=== PATIENT | female | born 1985 | race Two or more races ===

== ENCOUNTER → 2024-04-03 | Outpatient (REF) | payer OTHER | LOC: M SFHCWAGY 12:13 | PROVIDERS: ATTEND Specialist | DX: Z34.83 Encounter for supervision of other normal pregnancy, third trimester (principal) ==

== ENCOUNTER 2024-04-12 18:30 | Outpatient (CLI) | payer OTHER ==
[~2024-04-12] VITALS: Ht 165.1 cm; Wt 98.5 kg
[2024-04-12] MEDS ORDERED: PRENTAB9 PO (18:50)
[2024-04-12] MEDS ORDERED: HOME MED LIST COMPLETE! XX SCH (18:50)
[2024-04-12] MEDS ORDERED: PEPC40TA12 PO (18:50)
[2024-04-12 18:51] VITALS: BP 116/66
[2024-04-12 20:06] VITALS: BP 128/89
[2024-05-01] MEDS ORDERED: ACET325C5 PO (08:14)
[2024-05-01] MEDS ORDERED: VENTAER INH (09:32)
== END 2024-04-12 20:25 | disposition home or self-care (01) ==
LOC: M LDO 18:30
PROVIDERS: ATTEND Obstetrics & Gynecology
DX: O47.03 False labor before 37 completed weeks of gestation, third trimester (principal); O09.813 Supervision of pregnancy resulting from assisted reproductive technology, third trimester; O09.523 Supervision of elderly multigravida, third trimester; Z3A.36 36 weeks gestation of pregnancy; Z88.0 Allergy status to penicillin
CPT/HCPCS: 59025; G0463

== ENCOUNTER 2024-05-05 05:33 | Emergency (ER) | payer OTHER ==
[~2024-05-05] VITALS: Ht 165.1 cm; Wt 96.0 kg
[~2024-05-05 05:33] MED LIST: ACET325C5 PO; PEPC40TA12 PO; PRENTAB9 PO; VENTAER INH
[2024-05-05 07:17] LABS: BASO % 0.1 % (0.0-1.0); EOS # 0.1 10^3/uL (0.0-0.5); EOS % 1.6 % (0.0-3.0); HEMATOCRIT 27.5 % (36.0-47.0); HEMOGLOBIN 8.6 g/dl (12.0-15.5); LYMPH # 1.7 10^3/uL (1.5-5.0); LYMPH % 19.3 % (24.0-44.0); MEAN CORPUSCULAR HEMOGLOBIN 25.1 pg (27.0-33.0); MEAN CORPUSCULAR HGB CONC 31.3 g/dl (32.0-36.5); MEAN CORPUSCULAR VOLUME 80.2 fl (80.0-96.0); MONO # 0.9 10^3/uL (0.0-0.8); MONO % 10.3 % (2.0-8.0); NEUTROPHILS % 68.2 % (36.0-66.0); PLATELET COUNT, AUTOMATED 232 10^3/uL (150-450); RED BLOOD COUNT 3.43 10^6/uL (4.00-5.40); WHITE BLOOD COUNT 8.7 10^3/uL (4.0-10.0)
[2024-05-05 07:28] LABS: APPEARANCE, URINE CLEAR (CLEAR); BACTERIA, URINE AUTO NEGATIVE (NEGATIVE); BILIRUBIN, URINE AUTO NEGATIVE (NEGATIVE); BLOOD, URINE BLOOD 3+ (NEGATIVE); COLOR, URINE STRAW (YELLOW); GLUCOSE, URINE (UA) AUTO NEGATIVE (NEGATIVE); INR 0.97; KETONE, URINE AUTO NEGATIVE (NEGATIVE); LEUKOCYTE ESTERASE, URINE AUTO 2+ (NEGATIVE); NITRITE, URINE AUTO NEGATIVE (NEGATIVE); PARTIAL THROMBOPLASTIN TIME 26.4 SECONDS (24.8-34.2); PROTEIN, URINE AUTO NEGATIVE (NEGATIVE); PROTHROMBIN TIME 12.6 SECONDS (12.5-14.5); RBC, URINE AUTO 1 /HPF (0-3); SPECIFIC GRAVITY URINE AUTO 1.005 (1.002-1.035); SQUAMOUS EPITHELIAL CELL UR AU 4 /HPF (0-6); UROBILINOGEN, URINE AUTO 0.2 mg/dL (0.0-2.0); WBC, URINE AUTO 14 /HPF (0-3)
[2024-05-05 08:03] LABS: ALBUMIN 2.5 G/DL (3.2-5.2); ALKALINE PHOSPHATASE 85 U/L (46-116); ALT/SGPT 22 U/L (7.0-40); AST/SGOT 37 U/L (<34); BILIRUBIN,DIRECT < 0.1 MG/DL (<0.4); BILIRUBIN,TOTAL 0.3 MG/DL (0.3-1.2); BLOOD UREA NITROGEN 5 MG/DL (9-23); CALCIUM LEVEL 8.3 MG/DL (8.5-10.1); CARBON DIOXIDE LEVEL 28 MMOL/L (20-31); CHLORIDE LEVEL 104 MMOL/L (98-107); CREATININE FOR GFR 0.61 MG/DL (0.55-1.30); GLOMERULAR FILTRATION RATE > 60.0 (>60); GLUCOSE, FASTING 91 MG/DL (60-100); POTASSIUM SERUM 3.1 MMOL/L (3.5-5.1); SODIUM LEVEL 139 MMOL/L (136-145); TOTAL PROTEIN 5.9 G/DL (5.7-8.2)
[2024-05-05] MEDS: POTASSIUM CHLORIDE 10MEQ SR TABLET PO ONE (09:09)
[2024-05-05] MEDS: KCL 10MEQ IN D5/0.45NS 1000ML 1,000 ML IV SCH (09:09)
[2024-05-05] MEDS ORDERED: HOME MED LIST COMPLETE! XX SCH (11:00)
[2024-05-05 11:37] VITALS: BP 138/65; TEMP 97.7; O2SAT 99
[2024-05-05] MEDS ORDERED: POTA-298 PO (11:38)
== END 2024-05-05 11:52 | disposition home or self-care (01) ==
LOC: M ED 05:33
DX: R20.2 Paresthesia of skin (principal); D64.9 Anemia, unspecified; E87.6 Hypokalemia; J45.909 Unspecified asthma, uncomplicated; F41.9 Anxiety disorder, unspecified; Z88.0 Allergy status to penicillin; Z79.1 Long term (current) use of non-steroidal anti-inflammatories (NSAID); Z79.810 Long term (current) use of selective estrogen receptor modulators (SERMs); Z79.899 Other long term (current) drug therapy

== ENCOUNTER 2024-05-07 00:21 | Emergency (ER) | payer OTHER ==
[~2024-05-07] VITALS: Ht 165.1 cm; Wt 72.7 kg
[~2024-05-07 00:21] MED LIST changes: +POTA-298 PO
[2024-05-07] MEDS ORDERED: MORPHINE 4 MG/ML 1ML VIAL As Ordered ONE (00:34)
[2024-05-07] MEDS ORDERED: NITROGLYCERIN 0.3MG SUBL TAB SL PRN (00:35)
[2024-05-07] MEDS ORDERED: ASPIRIN 81MG CHEW TABLET As Ordered ONE (00:36)
[2024-05-07] MEDS ORDERED: NITROGLYCERIN 0.4MG SUBL TABLET As Ordered ONE (00:38)
[2024-05-07] MEDS: ASPIRIN 81MG CHEW TABLET PO ONE (00:56)
[2024-05-07] MEDS: MORPHINE 4 MG/ML 1ML VIAL IV ONE (00:57)
[2024-05-07 01:00] VITALS: TEMP 98.1
[2024-05-07] MEDS ORDERED: NITROGLYCERIN 0.4MG SUBL TABLET SL PRN ×2 (01:00)
[2024-05-07] MEDS: CLOPIDOGREL 300 MG TAB (PLAVIX) PO ONE (01:02)
[2024-05-07] MEDS ORDERED: POTASSIUM CHL PWD 20MEQ PACKET PO ONE (01:05)
[2024-05-07 01:09] LABS: BASO % 0.2 % (0.0-1.0); EOS # 0.3 10^3/uL (0.0-0.5); EOS % 2.6 % (0.0-3.0); HEMATOCRIT 30.6 % (36.0-47.0); HEMOGLOBIN 9.5 g/dl (12.0-15.5); LYMPH # 2.7 10^3/uL (1.5-5.0); LYMPH % 28.2 % (24.0-44.0); MEAN CORPUSCULAR HEMOGLOBIN 24.8 pg (27.0-33.0); MEAN CORPUSCULAR VOLUME 79.9 fl (80.0-96.0); MONO # 0.8 10^3/uL (0.0-0.8); NEUTROPHILS # 5.8 10^3/uL (1.5-8.5); NEUTROPHILS % 60.5 % (36.0-66.0); PLATELET COUNT, AUTOMATED 241 10^3/uL (150-450); RED BLOOD COUNT 3.83 10^6/uL (4.00-5.40); WHITE BLOOD COUNT 9.6 10^3/uL (4.0-10.0)
[2024-05-07 01:21] LABS: CK-MB VALUE MASS 41.7 NG/ML (<3.6)
[2024-05-07] MEDS: ONDANSETRON 4MG 2ML VIAL IV ONE (01:21)
[2024-05-07] MEDS: HEPARIN SOD (PORCINE) 5000UNITS/ML 1ML VIAL/SYRINGE IV ONE (01:26)
[2024-05-07] MEDS: HEPARIN DRIP 25,000 UNITS in IV 1 EA IV SCH (01:28)
[2024-05-07 01:30] VITALS: O2SAT 99
[2024-05-07 01:31] LABS: D-DIMER QUANT 1.79 ug/mL (<0.5); INR 0.99; PARTIAL THROMBOPLASTIN TIME 22.2 SECONDS (24.8-34.2); PROTHROMBIN TIME 12.8 SECONDS (12.5-14.5)
[2024-05-07 01:42] LABS: ALBUMIN 2.7 G/DL (3.2-5.2); ALKALINE PHOSPHATASE 103 U/L (46-116); ALT/SGPT 51 U/L (7.0-40); AST/SGOT 105 U/L (<34); BILIRUBIN,TOTAL 0.4 MG/DL (0.3-1.2); BLOOD UREA NITROGEN 7 MG/DL (9-23); CALCIUM LEVEL 8.6 MG/DL (8.5-10.1); CARBON DIOXIDE LEVEL 23 MMOL/L (20-31); CHLORIDE LEVEL 105 MMOL/L (98-107); CPK CREATINE PHOSPHOKINASE 697 U/L (34-145); CREATININE FOR GFR 0.59 MG/DL (0.55-1.30); GLOMERULAR FILTRATION RATE > 60.0 (>60); GLUCOSE, FASTING 109 MG/DL (60-100); MB/CK RELATIVE INDEX 5.98 (< OR =4); POTASSIUM SERUM 3.2 MMOL/L (3.5-5.1); SODIUM LEVEL 140 MMOL/L (136-145); TOTAL PROTEIN 6.6 G/DL (5.7-8.2)
[2024-05-07] MEDS: NITROGLYCERIN/D5W 100MCG/ML 25 MG in IV 1 EA IV STA (01:55)
[2024-05-07] MEDS ORDERED: cefTRIAXone SOD 1 GM in D5W MINI-BAG PLUS 50 ML IV ONE (02:00)
[2024-05-07 02:13] VITALS: BP 136/84
[2024-05-07] MEDS: HYDROMORPHONE HCL 0.5 MG/ 0.5 ML SYRINGE IV ONE (02:27)
== END 2024-05-07 02:22 | disposition short-term general hospital (02) ==
LOC: M ED 00:21
DX: I21.3 ST elevation (STEMI) myocardial infarction of unspecified site (principal); R00.0 Tachycardia, unspecified; Z88.0 Allergy status to penicillin; Z79.899 Other long term (current) drug therapy; Z79.1 Long term (current) use of non-steroidal anti-inflammatories (NSAID)
CPT/HCPCS: 71045; 80047; 80053; 82550; 82553; 83880; 84484; 85025; 85379; 85610; 85730; 93005; 93041; 94760; 96374; 96375; 99284; J1170; J2305; J2405

== ENCOUNTER 2025-05-10 12:05 | Outpatient (CLI) | payer OTHER ==
[~2025-05-10] VITALS: Ht 165.1 cm; Wt 98.1 kg
[2025-05-10 12:20] VITALS: BP 164/88; O2SAT 99
[2025-05-10 15:32] LABS: ALT/SGPT 45 U/L (7.0-40); AST/SGOT 41 U/L (<34); CALCIUM LEVEL 10.1 MG/DL (8.5-10.1); CARBON DIOXIDE LEVEL 31 MMOL/L (20-31); CHLORIDE LEVEL 96 MMOL/L (98-107); CREATININE FOR GFR 0.79 MG/DL (0.55-1.30); GLOMERULAR FILTRATION RATE > 90.0 (>60); MAGNESIUM LEVEL 1.8 MG/DL (1.8-2.4); POTASSIUM SERUM 3.2 MMOL/L (3.5-5.1); SODIUM LEVEL 142 MMOL/L (136-145)
== END 2025-05-10 13:10 | disposition home or self-care (01) ==
LOC: M INFU 12:05
PROVIDERS: ATTEND Internal Medicine
DX: I50.20 Unspecified systolic (congestive) heart failure (principal); Z95.828 Presence of other vascular implants and grafts

== ENCOUNTER → 2025-05-12 | Outpatient (CLI) | payer OTHER ==
[2025-05-12 17:36] LABS: PLATELET COUNT, AUTOMATED 210 10^3/uL (150-450)
[2025-05-12 18:21] LABS: ATYPICAL LYMPH 6 % (0-5); EOSINOPHILS 1 % (0-3); LYMPHOCYTES 33 % (16-44); MONOCYTES 4 % (0-5); NEUTROPHILS 56 % (28-66)
[2025-05-12 18:22] LABS: PLATELET ESTIMATE NORMAL (NORMAL)
== END ==
LOC: M RAD 16:19
PROVIDERS: ATTEND Internal Medicine
DX: Z95.828 Presence of other vascular implants and grafts (principal); Z95.0 Presence of cardiac pacemaker

== ENCOUNTER 2025-05-17 13:49 | Outpatient (CLI) | payer OTHER | END 2025-05-17 14:20 | disposition home or self-care (01) | LOC: M INFU 13:49 | PROVIDERS: ATTEND Internal Medicine | DX: I50.20 Unspecified systolic (congestive) heart failure (principal); Z95.828 Presence of other vascular implants and grafts ==

== ENCOUNTER → 2025-05-18 | Outpatient (CLI) | payer OTHER ==
[~2025-05-18] MED LIST changes: +SODIUM CHLORIDE 0.9% INJ 10 ML SYR IV PRN; +SODIUM CHLORIDE 0.9% INJ 10 ML SYR IV SCH
== END ==
LOC: M IRPRO 08:29
PROVIDERS: ATTEND Internal Medicine
DX: I50.20 Unspecified systolic (congestive) heart failure (principal)
CPT/HCPCS: 36569; C1751

== ENCOUNTER 2025-05-24 12:25 | Outpatient (CLI) | payer OTHER ==
[~2025-05-24] VITALS: Ht 165.1 cm; Wt 112.7 kg
[~2025-05-24 12:25] MED LIST changes: -SODIUM CHLORIDE 0.9% INJ 10 ML SYR IV PRN; -SODIUM CHLORIDE 0.9% INJ 10 ML SYR IV SCH
[2025-05-24 12:35] VITALS: BP 111/58; O2SAT 99
== END 2025-05-24 13:00 | disposition home or self-care (01) ==
LOC: M INFU 12:25
PROVIDERS: ATTEND Internal Medicine
DX: I50.20 Unspecified systolic (congestive) heart failure (principal); Z95.828 Presence of other vascular implants and grafts

== ENCOUNTER 2025-05-31 12:45 | Outpatient (CLI) | payer OTHER ==
[2025-05-31 13:05] VITALS: BP 128/72; O2SAT 95
== END 2025-05-31 13:35 ==
LOC: M INFU 12:45
PROVIDERS: ATTEND Internal Medicine
DX: I50.20 Unspecified systolic (congestive) heart failure (principal); Z95.828 Presence of other vascular implants and grafts

== ENCOUNTER 2025-06-07 12:33 | Outpatient (CLI) | payer OTHER ==
[2025-06-07 12:40] VITALS: BP 98/58; O2SAT 98
[2025-06-07 14:03] LABS: ALT/SGPT 25 U/L (7.0-40); AST/SGOT 31 U/L (<34); CALCIUM LEVEL 9.9 MG/DL (8.5-10.1); CARBON DIOXIDE LEVEL 32 MMOL/L (20-31); CHLORIDE LEVEL 98 MMOL/L (98-107); CREATININE FOR GFR 0.79 MG/DL (0.55-1.30); GLOMERULAR FILTRATION RATE > 90.0 (>60); MAGNESIUM LEVEL 2.0 MG/DL (1.8-2.4); POTASSIUM SERUM 4.0 MMOL/L (3.5-5.1); SODIUM LEVEL 141 MMOL/L (136-145)
== END 2025-06-07 13:10 | disposition home or self-care (01) ==
LOC: M INFU 12:33
PROVIDERS: ATTEND Internal Medicine
DX: I50.20 Unspecified systolic (congestive) heart failure (principal); Z95.828 Presence of other vascular implants and grafts; Z88.0 Allergy status to penicillin

== ENCOUNTER 2025-06-11 15:00 | Outpatient (CLI) | payer OTHER ==
[~2025-06-11] VITALS: Ht 165.1 cm; Wt 67.3 kg
[2025-06-11 15:05] VITALS: BP 109/58; O2SAT 96
== END 2025-06-11 15:20 ==
LOC: M INFU 15:00
PROVIDERS: ATTEND Internal Medicine
DX: I50.20 Unspecified systolic (congestive) heart failure (principal); Z95.828 Presence of other vascular implants and grafts; Z88.0 Allergy status to penicillin

== ENCOUNTER → 2025-06-18 | Outpatient (CLI) | payer OTHER | LOC: M INFU 14:50 | PROVIDERS: ATTEND Internal Medicine | DX: I50.20 Unspecified systolic (congestive) heart failure (principal); Z95.828 Presence of other vascular implants and grafts ==

== ENCOUNTER 2025-06-25 11:30 | Outpatient (CLI) | payer OTHER ==
[2025-06-25 11:30] VITALS: BP 90/62; O2SAT 99
== END 2025-06-25 11:45 ==
LOC: M INFU 11:30
PROVIDERS: ATTEND Internal Medicine
DX: I50.20 Unspecified systolic (congestive) heart failure (principal); Z95.828 Presence of other vascular implants and grafts

== ENCOUNTER 2025-07-16 12:35 | Outpatient (CLI) | payer OTHER ==
[~2025-07-16] VITALS: Ht 165.1 cm; Wt 109.0 kg
[2025-07-16 12:45] VITALS: BP 105/57; O2SAT 99
[2025-07-16 13:50] LABS: BASO # 0.1 10^3/uL (0.0-0.2); BASO % 0.9 % (0.0-1.0); EOS # 0.1 10^3/uL (0.0-0.5); EOS % 2.3 % (0.0-3.0); LYMPH # 1.9 10^3/uL (1.5-5.0); LYMPH % 33.9 % (24.0-44.0); MONO # 0.8 10^3/uL (0.0-0.8); MONO % 13.4 % (2.0-8.0); NEUTROPHILS # 2.8 10^3/uL (1.5-8.5); NEUTROPHILS % 49.3 % (36.0-66.0); PLATELET COUNT, AUTOMATED 215 10^3/uL (150-450)
[2025-07-16 14:15] LABS: ALT/SGPT 27.0 U/L (7.0-40); AST/SGOT 29.0 U/L (<34); CALCIUM LEVEL 9.5 MG/DL (8.5-10.1); CARBON DIOXIDE LEVEL 33.0 MMOL/L (20-31); CHLORIDE LEVEL 97.0 MMOL/L (98-107); CREATININE FOR GFR 0.91 MG/DL (0.55-1.30); GLOMERULAR FILTRATION RATE 82.8 (>60); MAGNESIUM LEVEL 2.0 MG/DL (1.8-2.4); POTASSIUM SERUM 3.5 MMOL/L (3.5-5.1); SODIUM LEVEL 137.0 MMOL/L (136-145)
== END 2025-07-16 13:00 ==
LOC: M INFU 12:35
PROVIDERS: ATTEND Internal Medicine
DX: Z45.2 Encounter for adjustment and management of vascular access device (principal); I50.42 Chronic combined systolic (congestive) and diastolic (congestive) heart failure; Z79.899 Other long term (current) drug therapy

== ENCOUNTER → 2025-07-16 | Outpatient (REF) | payer OTHER ==
[2025-07-16 15:25] LABS: APPEARANCE, URINE CLEAR (CLEAR); BACTERIA, URINE AUTO NEGATIVE (NEGATIVE); BILIRUBIN, URINE AUTO NEGATIVE (NEGATIVE); BLOOD, URINE BLOOD NEGATIVE (NEGATIVE); GLUCOSE, URINE (UA) AUTO NEGATIVE (NEGATIVE); KETONE, URINE AUTO NEGATIVE (NEGATIVE); LEUKOCYTE ESTERASE, URINE AUTO NEGATIVE (NEGATIVE); NITRITE, URINE AUTO NEGATIVE (NEGATIVE); PROTEIN, URINE AUTO NEGATIVE (NEGATIVE); RBC, URINE AUTO 8 /HPF (0-3); SPECIFIC GRAVITY URINE AUTO 1.009 (1.002-1.035); SQUAMOUS EPITHELIAL CELL UR AU 0 /HPF (0-6); UROBILINOGEN, URINE AUTO 0.2 mg/dL (0.0-2.0); WBC, URINE AUTO 2 /HPF (0-3)
[2025-07-17 12:52] LABS: CANDIDA GLABRATA NAA NOT DETECTED (NOT DETECTED); TRICH VAG BY NAA NOT DETECTED (NOT DETECTED)
[2025-07-17 13:42] LABS: BVAB 2 POSITIVE (NEGATIVE)
[2025-07-17 14:02] LABS: CHLAMYDIA TRACHOMATIS NAA NOT DETECTED (NOT DETECTED)
== END ==
LOC: M SMT 12:54
PROVIDERS: ATTEND Nurse Practitioner Family
DX: N89.8 Other specified noninflammatory disorders of vagina (principal); N39.0 Urinary tract infection, site not specified

== ENCOUNTER 2025-07-30 12:44 | Outpatient (CLI) | payer OTHER ==
[2025-07-30 13:05] VITALS: BP 121/84; O2SAT 98
[2025-07-30 13:55] LABS: BASO # 0.0 10^3/uL (0.0-0.2); BASO % 0.4 % (0.0-1.0); EOS # 0.1 10^3/uL (0.0-0.5); EOS % 2.5 % (0.0-3.0); LYMPH # 1.7 10^3/uL (1.5-5.0); LYMPH % 30.6 % (24.0-44.0); MONO # 0.6 10^3/uL (0.0-0.8); MONO % 10.8 % (2.0-8.0); NEUTROPHILS # 3.1 10^3/uL (1.5-8.5); NEUTROPHILS % 55.3 % (36.0-66.0); PLATELET COUNT, AUTOMATED 199 10^3/uL (150-450)
[2025-07-30 14:26] LABS: ALT/SGPT 30 U/L (7.0-40); AST/SGOT 33 U/L (<34); CALCIUM LEVEL 9.2 MG/DL (8.5-10.1); CARBON DIOXIDE LEVEL 33 MMOL/L (20-31); CHLORIDE LEVEL 99 MMOL/L (98-107); CREATININE FOR GFR 0.76 MG/DL (0.55-1.30); GLOMERULAR FILTRATION RATE > 90.0 (>60); MAGNESIUM LEVEL 2.0 MG/DL (1.8-2.4); POTASSIUM SERUM 3.8 MMOL/L (3.5-5.1); SODIUM LEVEL 140 MMOL/L (136-145)
== END 2025-07-30 13:20 ==
LOC: M INFU 12:44
PROVIDERS: ATTEND Physician Assistant Medical
DX: Z45.2 Encounter for adjustment and management of vascular access device (principal); Z79.899 Other long term (current) drug therapy; I50.42 Chronic combined systolic (congestive) and diastolic (congestive) heart failure; I50.20 Unspecified systolic (congestive) heart failure; I50.9 Heart failure, unspecified

== ENCOUNTER 2025-08-06 13:07 | Outpatient (CLI) | payer OTHER | END 2025-08-06 13:40 | disposition home or self-care (01) | LOC: M INFU 13:07 | PROVIDERS: ATTEND Physician Assistant Medical | DX: Z45.2 Encounter for adjustment and management of vascular access device (principal); Z79.899 Other long term (current) drug therapy ==

== ENCOUNTER → 2025-08-09 | Outpatient (CLI) | payer OTHER | LOC: M RAD 15:17 | PROVIDERS: ATTEND Nurse Practitioner Family | DX: N31.9 Neuromuscular dysfunction of bladder, unspecified (principal) ==

== ENCOUNTER 2025-08-13 13:01 | Outpatient (CLI) | payer OTHER ==
[~2025-08-13] VITALS: Ht 165.1 cm; Wt 109.0 kg
[2025-08-13 13:10] VITALS: BP 98/57; O2SAT 97
== END 2025-08-13 13:30 ==
LOC: M INFU 13:01
PROVIDERS: ATTEND Physician Assistant Medical
DX: Z45.2 Encounter for adjustment and management of vascular access device (principal)

== ENCOUNTER → 2025-08-25 | Outpatient (REF) | payer OTHER ==
[2025-08-25 18:06] LABS: APPEARANCE, URINE HAZY (CLEAR); BACTERIA, URINE AUTO 1+ (NEGATIVE); BILIRUBIN, URINE AUTO NEGATIVE (NEGATIVE); BLOOD, URINE BLOOD NEGATIVE (NEGATIVE); GLUCOSE, URINE (UA) AUTO NEGATIVE (NEGATIVE); KETONE, URINE AUTO NEGATIVE (NEGATIVE); LEUKOCYTE ESTERASE, URINE AUTO 2+ (NEGATIVE); NITRITE, URINE AUTO NEGATIVE (NEGATIVE); PROTEIN, URINE AUTO NEGATIVE (NEGATIVE); RBC, URINE AUTO 4 /HPF (0-3); SPECIFIC GRAVITY URINE AUTO 1.014 (1.002-1.035); SQUAMOUS EPITHELIAL CELL UR AU 1 /HPF (0-6); UROBILINOGEN, URINE AUTO 0.2 mg/dL (0.0-2.0); WBC, URINE AUTO TNTC /HPF (0-3)
== END ==
LOC: M SMT 16:53
PROVIDERS: ATTEND Urology
DX: N31.9 Neuromuscular dysfunction of bladder, unspecified (principal)

== ENCOUNTER 2025-08-27 13:18 | Outpatient (CLI) | payer OTHER ==
[2025-08-27 13:15] VITALS: BP 101/68; O2SAT 98
== END 2025-08-27 13:40 | disposition home or self-care (01) ==
LOC: M INFU 13:18
PROVIDERS: ATTEND Physician Assistant Medical
DX: Z45.2 Encounter for adjustment and management of vascular access device (principal)

== ENCOUNTER 2025-09-03 13:12 | Outpatient (CLI) | payer OTHER ==
[~2025-09-03] VITALS: Ht 165.1 cm; Wt 109.0 kg
[2025-09-03 13:55] VITALS: BP 146/74; O2SAT 96
[2025-09-03 14:06] LABS: BASO # 0.0 10^3/uL (0.0-0.2); BASO % 0.4 % (0.0-1.0); EOS # 0.1 10^3/uL (0.0-0.5); EOS % 2.5 % (0.0-3.0); LYMPH # 2.0 10^3/uL (1.5-5.0); LYMPH % 37.7 % (24.0-44.0); MONO # 0.7 10^3/uL (0.0-0.8); MONO % 12.3 % (2.0-8.0); NEUTROPHILS # 2.5 10^3/uL (1.5-8.5); NEUTROPHILS % 46.9 % (36.0-66.0); PLATELET COUNT, AUTOMATED 181 10^3/uL (150-450)
[2025-09-03 14:27] LABS: ALT/SGPT 43 U/L (7.0-40); AST/SGOT 39 U/L (<34); CALCIUM LEVEL 8.9 MG/DL (8.5-10.1); CARBON DIOXIDE LEVEL 30 MMOL/L (20-31); CHLORIDE LEVEL 100 MMOL/L (98-107); CREATININE FOR GFR 0.61 MG/DL (0.55-1.30); GLOMERULAR FILTRATION RATE > 90.0 (>60); MAGNESIUM LEVEL 1.7 MG/DL (1.8-2.4); POTASSIUM SERUM 3.2 MMOL/L (3.5-5.1); SODIUM LEVEL 140 MMOL/L (136-145)
[2025-09-04] MEDS ORDERED: [UNRECOGNIZED DRUG - CODE] IV (15:51)
[2025-09-04] MEDS ORDERED: POTA-151 PO (15:51)
[2025-09-04] MEDS ORDERED: TIZA2TA PO (15:51)
[2025-09-04] MEDS ORDERED: LEVE10003 PO (15:51)
[2025-09-04] MEDS ORDERED: METH-1100 (15:51)
[2025-09-04] MEDS ORDERED: PREG100C2 (15:51)
[2025-09-04] MEDS ORDERED: ROSU20TA86 PO (15:51)
[2025-09-04] MEDS ORDERED: DULO1CAP6 (15:51)
[2025-09-04] MEDS ORDERED: OXYC10TA12 PO (15:51)
[2025-09-04] MEDS ORDERED: TRAZ-252 (15:51)
[2025-09-04] MEDS ORDERED: LEVO50TA5 (15:51)
[2025-09-04] MEDS ORDERED: PANT40TA29 PO (15:51)
[2025-09-04] MEDS ORDERED: FAMO1TAB11 PO (15:51)
[2025-09-04] MEDS ORDERED: METH-1100 PO (17:31)
[2025-09-04] MEDS ORDERED: NITR0.4S14 SL (17:31)
[2025-09-04] MEDS ORDERED: ROZE8TAB16 PO (17:31)
[2025-09-04] MEDS ORDERED: ASPI81TA26 PO (17:31)
[2025-09-04] MEDS ORDERED: MAGN400T35 PO (17:31)
[2025-09-04] MEDS ORDERED: SYNT50TA PO (17:31)
[2025-09-04] MEDS ORDERED: DULO20CA27 PO (17:34)
[2025-09-04] MEDS ORDERED: PREG150C2 PO (17:51)
[2025-09-04] MEDS ORDERED: CLOP75TA2 PO (17:51)
[2025-09-04] MEDS ORDERED: METO1TAB32 PO (17:51)
[2025-09-04] MEDS ORDERED: NITR50CA51 PO (17:51)
[2025-09-04] MEDS ORDERED: OXYB5TAB14 PO (17:51)
[2025-09-04] MEDS ORDERED: SPIR-10 PO (17:51)
[2025-09-04] MEDS ORDERED: TORS20TA2 PO (17:51)
[2025-09-04] MEDS ORDERED: FERR1TAB8 PO (17:51)
[2025-09-04] MEDS ORDERED: SENN-186 PO (17:51)
== END 2025-09-03 14:00 | disposition home or self-care (01) ==
LOC: M INFU 13:12
PROVIDERS: ATTEND Physician Assistant Medical
DX: I50.9 Heart failure, unspecified (principal); I50.42 Chronic combined systolic (congestive) and diastolic (congestive) heart failure; I50.20 Unspecified systolic (congestive) heart failure; Z45.2 Encounter for adjustment and management of vascular access device; Z79.899 Other long term (current) drug therapy

== ENCOUNTER 2025-09-04 14:10 | Emergency (ER) | payer OTHER ==
[~2025-09-04] VITALS: Ht 165.1 cm; Wt 109.3 kg
[2025-09-04 15:13] LABS: BASO # 0.0 10^3/uL (0.0-0.2); BASO % 0.3 % (0.0-1.0); EOS # 0.2 10^3/uL (0.0-0.5); EOS % 2.3 % (0.0-3.0); LYMPH # 2.1 10^3/uL (1.5-5.0); LYMPH % 31.1 % (24.0-44.0); MONO # 0.7 10^3/uL (0.0-0.8); MONO % 9.8 % (2.0-8.0); NEUTROPHILS # 3.7 10^3/uL (1.5-8.5); NEUTROPHILS % 56.3 % (36.0-66.0); PLATELET COUNT, AUTOMATED 188 10^3/uL (150-450)
[2025-09-04 15:31] LABS: CK-MB VALUE MASS 1.3 NG/ML (<3.6)
[2025-09-04 15:36] LABS: FREE T4 2.41 NG/DL (0.89-1.76)
[2025-09-04 15:38] LABS: ALT/SGPT 45 U/L (7.0-40); AST/SGOT 45 U/L (<34); CALCIUM LEVEL 9.4 MG/DL (8.5-10.1); CARBON DIOXIDE LEVEL 31 MMOL/L (20-31); CHLORIDE LEVEL 99 MMOL/L (98-107); CREATININE FOR GFR 0.63 MG/DL (0.55-1.30); GLOMERULAR FILTRATION RATE > 90.0 (>60); MAGNESIUM LEVEL 1.7 MG/DL (1.8-2.4); POTASSIUM SERUM 3.4 MMOL/L (3.5-5.1); SODIUM LEVEL 142 MMOL/L (136-145)
[2025-09-04 15:43] LABS: CPK CREATINE PHOSPHOKINASE 80 U/L (34-145); MB/CK RELATIVE INDEX 1.62 (< OR =4)
[2025-09-04 15:50] LABS: HCG, SERUM QUALITATIVE NEGATIVE (NEGATIVE)
[2025-09-04] MEDS ORDERED: LEVO50TA5 (15:51)
[2025-09-04] MEDS ORDERED: ROSU20TA86 PO (15:51)
[2025-09-04] MEDS ORDERED: TRAZ-252 (15:51)
[2025-09-04] MEDS ORDERED: DULO1CAP6 (15:51)
[2025-09-04] MEDS ORDERED: POTA-151 PO (15:51)
[2025-09-04] MEDS ORDERED: METH-1100 (15:51)
[2025-09-04] MEDS ORDERED: LEVE10003 PO (15:51)
[2025-09-04] MEDS ORDERED: PREG100C2 (15:51)
[2025-09-04] MEDS ORDERED: [UNRECOGNIZED DRUG - CODE] IV (15:51)
[2025-09-04] MEDS ORDERED: TIZA2TA PO (15:51)
[2025-09-04] MEDS ORDERED: PANT40TA29 PO (15:51)
[2025-09-04] MEDS ORDERED: FAMO1TAB11 PO (15:51)
[2025-09-04] MEDS ORDERED: OXYC10TA12 PO (15:51)
[2025-09-04 16:10] LABS: INR 0.99
[2025-09-04] MEDS: MAG SULF 1GM/100ML (MAG RUN) 1 GM in IV 1 EA IV ONE (16:18)
[2025-09-04] MEDS: POTASSIUM CHLORIDE 10MEQ SR TABLET PO ONE (16:18)
[2025-09-04 16:35] LABS: CK-MB VALUE MASS 1.0 NG/ML (<3.6)
[2025-09-04 16:40] LABS: CPK CREATINE PHOSPHOKINASE 84.0 U/L (34-145); MB/CK RELATIVE INDEX 1.19 (< OR =4)
[2025-09-04] MEDS ORDERED: NITR0.4S14 SL (17:31)
[2025-09-04] MEDS ORDERED: MAGN400T35 PO (17:31)
[2025-09-04] MEDS ORDERED: SYNT50TA PO (17:31)
[2025-09-04] MEDS ORDERED: ASPI81TA26 PO (17:31)
[2025-09-04] MEDS ORDERED: ROZE8TAB16 PO (17:31)
[2025-09-04] MEDS ORDERED: METH-1100 PO (17:31)
[2025-09-04] MEDS ORDERED: DULO20CA27 PO (17:34)
[2025-09-04] MEDS ORDERED: SPIR-10 PO (17:51)
[2025-09-04] MEDS ORDERED: CLOP75TA2 PO (17:51)
[2025-09-04] MEDS ORDERED: PREG150C2 PO (17:51)
[2025-09-04] MEDS ORDERED: FERR1TAB8 PO (17:51)
[2025-09-04] MEDS ORDERED: TORS20TA2 PO (17:51)
[2025-09-04] MEDS ORDERED: OXYB5TAB14 PO (17:51)
[2025-09-04] MEDS ORDERED: NITR50CA51 PO (17:51)
[2025-09-04] MEDS ORDERED: METO1TAB32 PO (17:51)
[2025-09-04] MEDS ORDERED: SENN-186 PO (17:51)
[2025-09-04] MEDS ORDERED: HOME MED LIST COMPLETE! XX SCH (17:55)
[2025-09-04 18:46] LABS: CK-MB VALUE MASS 1.0 NG/ML (<3.6)
[2025-09-04 18:50] LABS: CPK CREATINE PHOSPHOKINASE 80.0 U/L (34-145); MB/CK RELATIVE INDEX 1.25 (< OR =4)
[2025-09-04 19:32] VITALS: BP 112/57; TEMP 98.4; O2SAT 95
== END 2025-09-04 19:16 | disposition home or self-care (01) ==
LOC: M ED 15:26
DX: T82.594A Other mechanical complication of infusion catheter, initial encounter (principal); R07.9 Chest pain, unspecified; I47.20 Ventricular tachycardia, unspecified; E87.6 Hypokalemia; E83.42 Hypomagnesemia; I50.9 Heart failure, unspecified; I25.2 Old myocardial infarction; F32.A Depression, unspecified; F41.9 Anxiety disorder, unspecified; Z95.810 Presence of automatic (implantable) cardiac defibrillator; Z88.0 Allergy status to penicillin; Z79.899 Other long term (current) drug therapy; Z79.82 Long term (current) use of aspirin
CPT/HCPCS: 71045; 80048; 80076; 82550; 82553; 83690; 83735; 83880; 84439; 84443; 84484; 84703; 85025; 85610; 93005; 93041; 94760; 96365; 96366; 99285; J3475

== ENCOUNTER → 2025-09-07 | Outpatient (CLI) | payer OTHER ==
[~2025-09-07] MED LIST changes: +ASPI81TA26 PO; +CLOP75TA2 PO; +DULO1CAP6; +DULO20CA27 PO; +FAMO1TAB11 PO; +FERR1TAB8 PO; +LEVE10003 PO; +LEVO50TA5; +MAGN400T35 PO; +METH-1100; +METH-1100 PO; +METO1TAB32 PO; +NITR0.4S14 SL; +NITR50CA51 PO; +OXYB5TAB14 PO; +OXYC10TA12 PO; +PANT40TA29 PO; +POTA-151 PO; +PREG100C2; +PREG150C2 PO; +ROSU20TA86 PO; +ROZE8TAB16 PO; +SENN-186 PO; +SPIR-10 PO; +SYNT50TA PO; +TIZA2TA PO; +TORS20TA2 PO; +TRAZ-252; +[UNRECOGNIZED DRUG - CODE] IV
== END ==
LOC: M IRPRO 09:08
PROVIDERS: ATTEND Physician Assistant Medical
DX: Z45.2 Encounter for adjustment and management of vascular access device (principal)
CPT/HCPCS: 36569; C1751

== ENCOUNTER → 2025-09-10 | Outpatient (CLI) | payer OTHER ==
[~2025-09-10] VITALS: Ht 165.1 cm; Wt 109.5 kg
[2025-09-10 12:55] VITALS: BP 155/75; O2SAT 98
[2025-09-10 14:41] LABS: PLATELET COUNT, AUTOMATED 197 10^3/uL (150-450)
[2025-09-10 14:45] LABS: ALT/SGPT 89 U/L (7.0-40); AST/SGOT 98 U/L (<34); CALCIUM LEVEL 9.7 MG/DL (8.5-10.1); CARBON DIOXIDE LEVEL 29 MMOL/L (20-31); CHLORIDE LEVEL 100 MMOL/L (98-107); CREATININE FOR GFR 0.58 MG/DL (0.55-1.30); GLOMERULAR FILTRATION RATE > 90.0 (>60); MAGNESIUM LEVEL 1.8 MG/DL (1.8-2.4); POTASSIUM SERUM 3.7 MMOL/L (3.5-5.1); SODIUM LEVEL 142 MMOL/L (136-145)
== END ==
LOC: M INFU 12:46
PROVIDERS: ATTEND Physician Assistant Medical
DX: Z45.2 Encounter for adjustment and management of vascular access device (principal); Z79.899 Other long term (current) drug therapy; I50.42 Chronic combined systolic (congestive) and diastolic (congestive) heart failure; Z88.0 Allergy status to penicillin

== ENCOUNTER 2025-09-15 10:55 | Outpatient (CLI) | payer OTHER ==
[~2025-09-15] VITALS: Ht 165.1 cm; Wt 64.1 kg
[2025-09-15 11:26] VITALS: BP 123/83; O2SAT 97
[2025-09-15 13:04] LABS: BASO # 0.0 10^3/uL (0.0-0.2); BASO % 0.2 % (0.0-1.0); EOS # 0.1 10^3/uL (0.0-0.5); EOS % 1.5 % (0.0-3.0); LYMPH # 1.7 10^3/uL (1.5-5.0); LYMPH % 32.6 % (24.0-44.0); MONO # 0.4 10^3/uL (0.0-0.8); MONO % 8.1 % (2.0-8.0); NEUTROPHILS # 3.0 10^3/uL (1.5-8.5); NEUTROPHILS % 57.2 % (36.0-66.0); PLATELET COUNT, AUTOMATED 187 10^3/uL (150-450)
[2025-09-15 13:25] LABS: ALT/SGPT 35 U/L (7.0-40); AST/SGOT 33 U/L (<34); CALCIUM LEVEL 9.4 MG/DL (8.5-10.1); CARBON DIOXIDE LEVEL 29 MMOL/L (20-31); CHLORIDE LEVEL 98 MMOL/L (98-107); CREATININE FOR GFR 0.66 MG/DL (0.55-1.30); GLOMERULAR FILTRATION RATE > 90.0 (>60); MAGNESIUM LEVEL 2.0 MG/DL (1.8-2.4); POTASSIUM SERUM 4.1 MMOL/L (3.5-5.1); SODIUM LEVEL 139 MMOL/L (136-145)
== END 2025-09-15 12:00 | disposition home or self-care (01) ==
LOC: M INFU 10:55
PROVIDERS: ATTEND Physician Assistant Medical
DX: Z45.2 Encounter for adjustment and management of vascular access device (principal); Z51.81 Encounter for therapeutic drug level monitoring; Z79.899 Other long term (current) drug therapy; I50.42 Chronic combined systolic (congestive) and diastolic (congestive) heart failure; Z88.0 Allergy status to penicillin

== ENCOUNTER 2025-09-24 11:40 | Outpatient (CLI) | payer OTHER ==
[~2025-09-24] VITALS: Ht 165.1 cm; Wt 109.5 kg
[2025-09-24 11:45] VITALS: BP 126/84; O2SAT 98
[2025-09-24 12:18] LABS: BASO # 0.0 10^3/uL (0.0-0.2); BASO % 0.2 % (0.0-1.0); EOS # 0.1 10^3/uL (0.0-0.5); EOS % 2.0 % (0.0-3.0); LYMPH # 2.2 10^3/uL (1.5-5.0); LYMPH % 33.6 % (24.0-44.0); MONO # 0.6 10^3/uL (0.0-0.8); MONO % 9.6 % (2.0-8.0); NEUTROPHILS # 3.5 10^3/uL (1.5-8.5); NEUTROPHILS % 54.4 % (36.0-66.0); PLATELET COUNT, AUTOMATED 199 10^3/uL (150-450)
[2025-09-24 12:45] LABS: ALT/SGPT 34 U/L (7.0-40); AST/SGOT 35 U/L (<34); CALCIUM LEVEL 9.3 MG/DL (8.5-10.1); CARBON DIOXIDE LEVEL 29 MMOL/L (20-31); CHLORIDE LEVEL 101 MMOL/L (98-107); CREATININE FOR GFR 0.64 MG/DL (0.55-1.30); GLOMERULAR FILTRATION RATE > 90.0 (>60); MAGNESIUM LEVEL 2.0 MG/DL (1.8-2.4); POTASSIUM SERUM 4.0 MMOL/L (3.5-5.1); SODIUM LEVEL 140 MMOL/L (136-145)
== END 2025-09-24 12:15 ==
LOC: M INFU 11:40
PROVIDERS: ATTEND Physician Assistant Medical
DX: Z45.2 Encounter for adjustment and management of vascular access device (principal); Z79.899 Other long term (current) drug therapy; I50.42 Chronic combined systolic (congestive) and diastolic (congestive) heart failure

== ENCOUNTER 2025-10-03 19:45 | Inpatient (IN) | payer OTHER ==
[~2025-10-03] VITALS: Ht 165.1 cm; Wt 115.4 kg
[2025-10-03] MEDS: MORPHINE 4 MG/ML 1 ML VIAL IV PRN (21:57)
[2025-10-03] MEDS: ONDANSETRON 4MG/2ML VIAL IV ONE (21:57)
[2025-10-03 21:59] LABS: BASO # 0.0 10^3/uL (0.0-0.2); BASO % 0.2 % (0.0-1.0); EOS # 0.2 10^3/uL (0.0-0.5); EOS % 2.4 % (0.0-3.0); LYMPH # 1.8 10^3/uL (1.5-5.0); LYMPH % 28.7 % (24.0-44.0); MONO # 0.7 10^3/uL (0.0-0.8); MONO % 10.2 % (2.0-8.0); NEUTROPHILS # 3.7 10^3/uL (1.5-8.5); NEUTROPHILS % 58.2 % (36.0-66.0); PLATELET COUNT, AUTOMATED 174 10^3/uL (150-450)
[2025-10-03 22:29] LABS: CK-MB VALUE MASS 1.5 NG/ML (<3.6)
[2025-10-03 22:30] LABS: HCG, SERUM QUALITATIVE NEGATIVE (NEGATIVE)
[2025-10-03 22:31] LABS: ALT/SGPT 30 U/L (7.0-40); AST/SGOT 35 U/L (<34); CALCIUM LEVEL 9.3 MG/DL (8.5-10.1); CARBON DIOXIDE LEVEL 23 MMOL/L (20-31); CHLORIDE LEVEL 102 MMOL/L (98-107); CREATININE FOR GFR 2.08 MG/DL (0.55-1.30); GLOMERULAR FILTRATION RATE 30.7 (>60); POTASSIUM SERUM 5.0 MMOL/L (3.5-5.1); SODIUM LEVEL 135 MMOL/L (136-145)
[2025-10-03 22:38] LABS: CPK CREATINE PHOSPHOKINASE 66 U/L (34-145); MB/CK RELATIVE INDEX 2.27 (< OR =4)
[2025-10-03 23:10] LABS: KETONE, URINE AUTO RFX NEGATIVE (NEGATIVE); MUCUS, URINE RFX SMALL (NEGATIVE); NITRITE, URINE AUTO RFX NEGATIVE (NEGATIVE); RBC, URINE AUTO RFX 1 /HPF (0-3); SQUAM EPITHELIAL CELL UR AURFX 1 /HPF (0-6)
[2025-10-03 23:12] LABS: LEUKOCYTE ESTERASE UR AUTO RFX 3+ (NEGATIVE); WBC, URINE AUTO RFX 133 /HPF (0-3)
[2025-10-04] VITALS (72 sets, daily range): BP systolic 76–123; BP diastolic 44–87; TEMP 97.8–98.9; O2SAT 90–99
[2025-10-04 00:01] LABS: CK-MB VALUE MASS 1.3 NG/ML (<3.6)
[2025-10-04 00:06] LABS: CPK CREATINE PHOSPHOKINASE 63.0 U/L (34-145); MB/CK RELATIVE INDEX 2.06 (< OR =4)
[2025-10-04] MEDS ORDERED: ISOVUE-370 76% 100 ML VIAL As Ordered ONE (00:44)
[2025-10-04] MEDS: NS (Normal Saline) 0.9% 1,000 ML IV ONE (02:58)
[2025-10-04] MEDS: MEROPENEM 2 GM, VIAL MATE ADAPTER 1 EACH in NS 100 ML IV ONE (03:16)
[2025-10-04] MEDS: NOREPINEPHRINE 4MG IN D5 250ML 4 MG in IV 1 EA IV SCH ×2 (03:24→04:04)
[2025-10-04] MEDS ORDERED: MIRA3350 PO (04:27)
[2025-10-04] MEDS ORDERED: LIDO1PAD TOP (04:29)
[2025-10-04] MEDS ORDERED: VALS40TA9 PO (04:33)
[2025-10-04] MEDS ORDERED: HOME MED LIST COMPLETE! XX SCH (04:35)
[2025-10-04] MEDS ORDERED: PHEN1TAB73 PO (04:36)
[2025-10-04] MEDS: ACETAMINOPHEN *IV* 1,000 MG in IV 1 EA IV ONE ×2 (05:43→11:41)
[2025-10-04 06:58] LABS: ALT/SGPT 28.0 U/L (7.0-40); AST/SGOT 25.0 U/L (<34); CALCIUM LEVEL 8.9 MG/DL (8.5-10.1); CARBON DIOXIDE LEVEL 26.0 MMOL/L (20-31); CHLORIDE LEVEL 104.0 MMOL/L (98-107); CREATININE FOR GFR 1.31 MG/DL (0.55-1.30); GLOMERULAR FILTRATION RATE 53.5 (>60); MAGNESIUM LEVEL 2.1 MG/DL (1.8-2.4); PHOSPHORUS LEVEL 2.9 MG/DL (2.5-4.9); POTASSIUM SERUM 4.1 MMOL/L (3.5-5.1); SODIUM LEVEL 139.0 MMOL/L (136-145)
[2025-10-04] MEDS ORDERED: VANCOMYCIN HCL 1,000 MG, VIAL MATE ADAPTER 1 EACH in NS 250 ML IV SCH (07:55)
[2025-10-04] MEDS ORDERED: COMBIVENT RESPIMAT 100-20 MCG INHALER 4 GM INH SCH (08:00)
[2025-10-04] MEDS: MILRINONE/DEXTROSE 20 MG in IV 1 EA IV SCH (08:42)
[2025-10-04] MEDS: PANTOPRAZOLE 40MG VIAL IV SCH (08:42)
[2025-10-04] MEDS: LR 1,000 ML IV ONE (08:42)
[2025-10-04 09:27] LABS: CORTISOL AM 1.5 UG/DL (4.3-22.4)
[2025-10-04] MEDS: VANCOMYCIN HCL 1,500 MG, VIAL MATE ADAPTER 1 EACH in NS 500 ML IV ONE (10:58)
[2025-10-04] MEDS: NS (Normal Saline) 0.9% 1,000 ML IV SCH (10:59)
[2025-10-04] MEDS: CLOPIDOGREL 75 MG TAB PO SCH (11:36)
[2025-10-04] MEDS: PREGABALIN 50 MG CAP PO SCH (11:37)
[2025-10-04] MEDS: LEVOTHYROXINE 50 MCG TABLET (0.05 MG) PO SCH (11:37)
[2025-10-04] MEDS: ASPIRIN 81 MG ENTERIC TABLET PO SCH (11:37)
[2025-10-04] MEDS: HYDROCORTISONE 100 MG/2 ML VIAL IV SCH (11:38)
[2025-10-04] MEDS ORDERED: ONDANSETRON 4MG/2ML VIAL IV ONE (14:00)
[2025-10-04] MEDS: HEPARIN SOD 5000 UNITS/ML 1 ML VIAL/SYRINGE SC SCH (14:00)
[2025-10-04] MEDS: ONDANSETRON 4MG/2ML VIAL IV STA (14:03)
[2025-10-04] MEDS ORDERED: PILL CUTTER 1 EACH XX PRN (14:05)
[2025-10-04] MEDS: MEROPENEM 2 GM, VIAL MATE ADAPTER 1 EACH in NS 100 ML IV SCH (14:45)
[2025-10-04] MEDS ORDERED: LIDOCAINE 5% PATCH TD ONE (15:00)
[2025-10-04] MEDS: LIDOCAINE 5% PATCH TD SCH (15:25)
[2025-10-04] MEDS: VANCOMYCIN HCL 750 MG, VIAL MATE ADAPTER 1 EACH in NS 250 ML IV SCH (19:31)
[2025-10-05] VITALS (81 sets, daily range): BP systolic 75–150; BP diastolic 42–85; TEMP 97–98.2; O2SAT 86–99
[2025-10-05] MEDS: MORPHINE 2 MG/ML 1 ML VIAL IV ONE (03:26)
[2025-10-05 06:29] LABS: BASO # 0.0 10^3/uL (0.0-0.2); BASO % 0.3 % (0.0-1.0); EOS # 0.0 10^3/uL (0.0-0.5); EOS % 0.1 % (0.0-3.0); LYMPH # 1.5 10^3/uL (1.5-5.0); LYMPH % 19.6 % (24.0-44.0); MONO # 0.3 10^3/uL (0.0-0.8); MONO % 4.1 % (2.0-8.0); NEUTROPHILS # 5.7 10^3/uL (1.5-8.5); NEUTROPHILS % 75.5 % (36.0-66.0); PLATELET COUNT, AUTOMATED 192 10^3/uL (150-450)
[2025-10-05 07:16] LABS: VANCOMYCIN LEVEL TROUGH 6.2 UG/ML (10.0-20.0)
[2025-10-05 07:19] LABS: ALT/SGPT 26 U/L (7.0-40); AST/SGOT 26 U/L (<34); CALCIUM LEVEL 8.9 MG/DL (8.5-10.1); CARBON DIOXIDE LEVEL 26 MMOL/L (20-31); CHLORIDE LEVEL 104 MMOL/L (98-107); CREATININE FOR GFR 0.66 MG/DL (0.55-1.30); GLOMERULAR FILTRATION RATE > 90.0 (>60); MAGNESIUM LEVEL 2.1 MG/DL (1.8-2.4); PHOSPHORUS LEVEL 2.1 MG/DL (2.5-4.9); POTASSIUM SERUM 4.2 MMOL/L (3.5-5.1); SODIUM LEVEL 139 MMOL/L (136-145)
[2025-10-05] MEDS: VANCOMYCIN HCL 1,000 MG, VIAL MATE ADAPTER 1 EACH in NS 250 ML IV SCH (08:45)
[2025-10-05] MEDS ORDERED: LIDOCAINE 5% PATCH TD SCH (09:00)
[2025-10-05] MEDS: LR 1,000 ML IV ONE (10:21)
[2025-10-06] VITALS (86 sets, daily range): BP systolic 75–132; BP diastolic 48–81; TEMP 97.2–98.6; O2SAT 76–100
[2025-10-06 06:56] LABS: BASO # 0.0 10^3/uL (0.0-0.2); BASO % 0.3 % (0.0-1.0); EOS # 0.0 10^3/uL (0.0-0.5); EOS % 0.5 % (0.0-3.0); LYMPH # 1.8 10^3/uL (1.5-5.0); LYMPH % 28.1 % (24.0-44.0); MONO # 0.3 10^3/uL (0.0-0.8); MONO % 4.6 % (2.0-8.0); NEUTROPHILS # 4.2 10^3/uL (1.5-8.5); NEUTROPHILS % 65.1 % (36.0-66.0); PLATELET COUNT, AUTOMATED 160 10^3/uL (150-450)
[2025-10-06 07:32] LABS: ALT/SGPT 21 U/L (7.0-40); AST/SGOT 24 U/L (<34); CALCIUM LEVEL 8.5 MG/DL (8.5-10.1); CARBON DIOXIDE LEVEL 30 MMOL/L (20-31); CHLORIDE LEVEL 106 MMOL/L (98-107); CREATININE FOR GFR 0.56 MG/DL (0.55-1.30); GLOMERULAR FILTRATION RATE > 90.0 (>60); MAGNESIUM LEVEL 1.9 MG/DL (1.8-2.4); PHOSPHORUS LEVEL 2.1 MG/DL (2.5-4.9); POTASSIUM SERUM 4.2 MMOL/L (3.5-5.1); SODIUM LEVEL 142 MMOL/L (136-145)
[2025-10-06] MEDS ORDERED: VANCOMYCIN HCL 750 MG, VIAL MATE ADAPTER 1 EACH in NS 250 ML IV SCH (08:00)
[2025-10-06] MEDS: MIDODRINE 5 MG TAB PO SCH (09:01)
[2025-10-06] MEDS: MIRALAX *UNIT DOSE* 17 GM PACKET PO SCH (09:01)
[2025-10-06] MEDS: metroNIDAZOLE 500 MG in IV 1 EA IV SCH (09:02)
[2025-10-06] MEDS: cefTRIAXone SOD 2 GM in DEXTROSE 5% (D5W) ADV/MINI-BAG 50 ML IV SCH (15:34)
[2025-10-06] MEDS ORDERED: BISACODYL 10 MG SUPP PR PRN (15:35)
[2025-10-06] MEDS: K-PHOS NEUTRAL 250 MG TABLET (SOD.PHOSPHATE/POT.PHOSPHATE) PO SCH (16:00)
[2025-10-06] MEDS: ROSUVASTATIN 10 MG TAB PO SCH (21:16)
[2025-10-07] VITALS (21 sets, daily range): BP systolic 85–117; BP diastolic 47–75; TEMP 97.1–98.4; O2SAT 92–100
[2025-10-07 05:13] LABS: BASO # 0.0 10^3/uL (0.0-0.2); BASO % 0.1 % (0.0-1.0); EOS # 0.0 10^3/uL (0.0-0.5); EOS % 0.1 % (0.0-3.0); LYMPH # 1.8 10^3/uL (1.5-5.0); LYMPH % 25.3 % (24.0-44.0); MONO # 0.3 10^3/uL (0.0-0.8); MONO % 4.7 % (2.0-8.0); NEUTROPHILS # 4.7 10^3/uL (1.5-8.5); NEUTROPHILS % 68.4 % (36.0-66.0); PLATELET COUNT, AUTOMATED 155 10^3/uL (150-450)
[2025-10-07 05:37] LABS: CORTISOL AM 25.0 UG/DL (4.3-22.4)
[2025-10-07 05:38] LABS: CALCIUM LEVEL 8.3 MG/DL (8.5-10.1); CARBON DIOXIDE LEVEL 28 MMOL/L (20-31); CHLORIDE LEVEL 104 MMOL/L (98-107); CREATININE FOR GFR 0.57 MG/DL (0.55-1.30); GLOMERULAR FILTRATION RATE > 90.0 (>60); PHOSPHORUS LEVEL 2.2 MG/DL (2.5-4.9); POTASSIUM SERUM 4.1 MMOL/L (3.5-5.1); SODIUM LEVEL 140 MMOL/L (136-145)
[2025-10-07] MEDS: SODIUM PHOSPHATE INJ 20 MMOL in D5W 250 ML IV ONE (08:55)
[2025-10-07] MEDS: PANTOPRAZOLE 40MG TAB PO SCH (08:56)
[2025-10-07] MEDS: MILRINONE/DEXTROSE 20 MG in IV 1 EA IV SCH (17:57)
[2025-10-07] MEDS: HYDROCORTISONE 100 MG/2 ML VIAL IV SCH (20:56)
[2025-10-08] VITALS (23 sets, daily range): BP systolic 91–147; BP diastolic 53–71; TEMP 96.9–98.5; O2SAT 94–99
[2025-10-08 04:23] LABS: BASO # 0.0 10^3/uL (0.0-0.2); BASO % 0.1 % (0.0-1.0); EOS # 0.1 10^3/uL (0.0-0.5); EOS % 0.6 % (0.0-3.0); LYMPH # 2.8 10^3/uL (1.5-5.0); LYMPH % 31.9 % (24.0-44.0); MONO # 0.6 10^3/uL (0.0-0.8); MONO % 7.2 % (2.0-8.0); NEUTROPHILS # 5.1 10^3/uL (1.5-8.5); NEUTROPHILS % 59.5 % (36.0-66.0); PLATELET COUNT, AUTOMATED 168 10^3/uL (150-450)
[2025-10-08 04:52] LABS: CALCIUM LEVEL 8.1 MG/DL (8.5-10.1); CARBON DIOXIDE LEVEL 29 MMOL/L (20-31); CHLORIDE LEVEL 103 MMOL/L (98-107); CREATININE FOR GFR 0.56 MG/DL (0.55-1.30); GLOMERULAR FILTRATION RATE > 90.0 (>60); PHOSPHORUS LEVEL 2.5 MG/DL (2.5-4.9); POTASSIUM SERUM 3.6 MMOL/L (3.5-5.1); SODIUM LEVEL 142 MMOL/L (136-145)
[2025-10-08] MEDS: HYDROCORTISONE 100 MG/2 ML VIAL IV SCH (16:42)
[2025-10-09] VITALS (26 sets, daily range): BP systolic 101–125; BP diastolic 55–59; TEMP 97.1–97.4; O2SAT 93–99
[2025-10-09] MEDS: METOPROLOL SUCC. 25 MG *XL* TAB PO SCH (10:00)
[2025-10-09] MEDS: HYDROCORTISONE 100 MG/2 ML VIAL IV SCH (15:44)
[2025-10-10] VITALS (16 sets, daily range): BP systolic 100–113; BP diastolic 50–64; TEMP 97–98.4; O2SAT 96–100
[2025-10-10] MEDS: HYDROCORTISONE 10 MG TAB PO SCH (14:13)
[2025-10-11] VITALS (10 sets, daily range): BP systolic 92–111; BP diastolic 47–63; TEMP 97–97.8; O2SAT 95–100
[2025-10-11] MEDS: HYDROCORTISONE 5 MG TABLET PO SCH (09:30)
[2025-10-12 00:15] VITALS: BP 100/50; TEMP 97.3; O2SAT 98
[2025-10-12 03:38] VITALS: BP 115/60; TEMP 97; O2SAT 97
[2025-10-12 08:26] VITALS: BP 96/47; TEMP 97; O2SAT 96
[2025-10-12 12:00] VITALS: BP 99/51; TEMP 97.8; O2SAT 96
[2025-10-12 13:09] VITALS: BP 109/55
[2025-10-12] MEDS ORDERED: HYDR-4468 PO (14:16)
[2025-10-12] MEDS ORDERED: CORT5TAB2 PO (14:16)
[2025-10-12] MEDS ORDERED: MIDO5TA PO (14:16)
[2026-10-04] MEDS ORDERED: LIDOCAINE 5% PATCH TD SCH (15:00)
== END 2025-10-12 16:29 | disposition home or self-care (01) | DRG 698 ==
LOC: M ED 19:45 → EEVIPCON 10-04 04:02 → M ED INP 10-04 04:02 → M ICU 10-04 05:13 → M PCU 10-08 04:15
PROVIDERS: ADMIT Student in an Organized Health Care Education/Training Program; ATTEND Student in an Organized Health Care Education/Training Program
PROC: B246ZZZ Ultrasonography of Right and Left Heart (ICD-10-PCS; principal; 2025-10-04)
DX: T83.511A Infection and inflammatory reaction due to indwelling urethral catheter, initial encounter (principal); A41.9 Sepsis, unspecified organism; R65.21 Severe sepsis with septic shock; I50.22 Chronic systolic (congestive) heart failure; G82.20 Paraplegia, unspecified; N17.9 Acute kidney failure, unspecified; E27.40 Unspecified adrenocortical insufficiency; N39.0 Urinary tract infection, site not specified; I95.89 Other hypotension; I25.10 Atherosclerotic heart disease of native coronary artery without angina pectoris; K52.9 Noninfective gastroenteritis and colitis, unspecified; N83.201 Unspecified ovarian cyst, right side; N83.202 Unspecified ovarian cyst, left side; F32.A Depression, unspecified; F41.9 Anxiety disorder, unspecified; J45.909 Unspecified asthma, uncomplicated; N80.9 Endometriosis, unspecified; N31.9 Neuromuscular dysfunction of bladder, unspecified; Z79.82 Long term (current) use of aspirin; Z79.890 Hormone replacement therapy; Z79.899 Other long term (current) drug therapy; Z88.0 Allergy status to penicillin; Z95.810 Presence of automatic (implantable) cardiac defibrillator; Z95.5 Presence of coronary angioplasty implant and graft; Z86.74 Personal history of sudden cardiac arrest